=== PATIENT | female | born 1960 | race Caucasian/White ===

== ENCOUNTER 2021-02-01 08:14 | Outpatient (REF) | payer OTHER, SELFPAY ==
--- NOTE | ~2021-02-01 | CT_ITS ---
CT SINUS WITHOUT IV CONTRAST CLINICAL INFORMATION: Sinonasal polyps. Deviated septum. COMPARISON: None available. TECHNIQUE: A multidetector CT acquisition of the sinuses is obtained without contrast. This CT examination was performed using dose optimization techniques as appropriate, variously including the following: *Automated exposure control *Adjustment of mA and/or kV according to patient size (this includes techniques or standardized protocols for targeted exams where dose is matched to indication/reason for exam; i.e. extremities or head) *Use of iterative reconstruction technique FINDINGS: There is moderate polypoid mucosal thickening within the maxillary sinuses bilaterally, there is mild mucosal thickening within the sphenoid sinuses bilaterally, there is moderate mucosal thickening within the ethmoid air cells bilaterally, and the frontal sinuses exhibit mild mucosal thickening. Polypoid soft tissue partially opacifies the maxillary ostia and infundibula bilaterally and also partially opacifies the upper third of the right and left nasal cavity including the olfactory recesses bilaterally. There is a small left mastoid effusion. 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 Left fovea ethmoidalis shares a contiguous slope of the left olfactory groove. There is leftward deviation of the posterior bony nasal septum with a leftward directed nasal septal spur. Pneumatization of the optic struts bilaterally and a small portion of the right anterior clinoid process. No significant soft tissue findings. CT/CT sinus wo con IMPRESSION: - There is moderate polypoid mucosal thickening within the maxillary sinuses bilaterally, there is moderate mucosal thickening throughout the ethmoid air cells bilaterally, and there is additional mild sinus mucosal disease as described. Polypoid soft tissue partially opacifies the maxillary ostia and infundibula bilaterally and also partially opacifies the upper third of the right and left nasal cavity including the olfactory recesses bilaterally. - There is a small left mastoid effusion. 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 - There is leftward deviation of the posterior bony nasal septum with a leftward directed nasal septal spur.
== END 2021-02-01 08:15 | disposition home or self-care (01) ==
LOC: HO.CT 08:14
PROVIDERS: PCP Internal Medicine; Visit Provider Otolaryngology
DX: J33.8 Other polyp of sinus (principal); J34.2 Deviated nasal septum
CPT/HCPCS: 70486

== ENCOUNTER 2021-06-07 11:33 | Emergency (ER) | payer OTHER, SELFPAY ==
--- NOTE | ~2021-06-07 | CT_ITS ---
EXAMINATION: CT HEAD WITHOUT CONTRAST CLINICAL INFORMATION: Fall COMPARISON: None TECHNIQUE: Contiguous axial imaging was performed from the skull base to vertex without intravenous administration of contrast. This CT examination was performed using dose optimization techniques as appropriate, variously including the following: *Automated exposure control *Adjustment of mA and/or kV according to patient size (this includes techniques or standardized protocols for targeted exams where dose is matched to indication/reason for exam; i.e. extremities or head) *Use of iterative reconstruction technique DLP: 662 mGy-cm FINDINGS: There is a acute interhemispheric bleed extending to both inferior frontal lobes with a right inferior frontal lobe hypodensity likely contusion.. The bleed also extends to the right frontal subdural space anteriorly. There is subtle areas of hypodensity seen along the left frontal cortex an similar hypodensities in bilateral parasagittal bilateral anterior frontal lobes questioning contusion. There is no midline shift. There is no suspicion for acute infarction. The posterior fossa is unremarkable. Bone windows reveal no calvarial abnormality. There is no scalp soft tissue abnormality. Bilateral paranasal sinuses and mastoid air cells are well-aerated. There is mild mucoperiosteal thickening bilateral ethmoid sinuses. Rest of the paranasal sinuses and mastoid air cells are well-aerated. CT/CT head/brain wo con IMPRESSION: Acute interhemispheric subdural bleed with extension the right anterior frontal and inferior frontal subdural space. There is moderate hypodensity in the right inferior frontal lobe likely contusion/edema. Similar findings are seen also in bilateral anterior frontal lobes on axial image 2021. There is no midline shifts. Mild bilateral chronic ethmoid sinus inflammatory changes. Results were immediately conveyed by phone to Dr. Lizeth Lemus at 4:10 PM
--- NOTE | ~2021-06-07 | CT_ITS ---
EXAMINATION: CT CERVICAL SPINE WITHOUT CONTRAST CLINICAL INFORMATION: Fall COMPARISON: None TECHNIQUE: Axial images through the cervical spine without contrast. Sagittal and coronal reconstructions on the technologist workstation were performed. This CT examination was performed using dose optimization techniques as appropriate, variously including the following: *Automated exposure control *Adjustment of mA and/or kV according to patient size (this includes techniques or standardized protocols for targeted exams where dose is matched to indication/reason for exam; i.e. extremities or head) *Use of iterative reconstruction technique DLP: 388 mGy-cm FINDINGS: Bone alignment is normal. No acute fracture or dislocation is seen. There is arthritis at the left temporomandibular joint and question old trauma to the mandible. There are postsurgical changes from anterior fusion at C5-C6, C6-C7 and C7-T1. There is mild degenerative spondylosis at C3-C4-C5. There is degenerative spondylosis and degenerative disc disease at T1-T2. There are degenerative changes at the C1 dens articulation. Prevertebral soft tissues are normal. There is mild left carotid calcification. Visualized lung apices are clear. CT/CT cervical spine wo con IMPRESSION: Postsurgical changes and degenerative changes. No acute fracture or dislocation. Degenerative changes of the left temporomandibular joint and question old trauma to the left mandible. Fleischner guidelines were followed.
[2021-06-07 12:13] VITALS: BP 171/83; PULSE 63; RESP 16; TEMP 36.1; O2SAT 99; BMI 24.1
--- NOTE | 2021-06-07 14:11 | ED.FALL ---
HPI - Fall General Chief Complaint: Fall Stated Complaint: Fall on Thursday Time Seen by Provider: 06/07/21 14:09 Source: patient Mode of arrival: ambulatory Limitations: no limitations History of Present Illness HPI Narrative: patient initially states she doesn't remember falling but then states she slipped on the floor due to tiles, notes her biggest issue since then is headache and loss of smell no AC therapy, no aspirin use. MD complaint: fall Onset (ago): day(s) (2) Fall from: standing Fall witnessed: no Place fall occurred: home Loss of consciousness: yes, minutes Length of LOC: minutes(s) (3) Prolonged down time: no Symptoms prior to fall: other (?thinks she slipped on the tile) Context: tripped/slipped Location of injury: head Severity: severe Quality: dull and throbbing Associated symptoms (after fall): headache, lightheaded and other (n/v) Related Data Allergies Allergy/AdvReac Type Severity Reaction Status Date / Time Penicillins [PCN] AdvReac Mild RASH Verified 06/07/21 12:19 CHILD Review of Systems Review of Systems: Constitutional : No Fever, No Chills, No Fatigue ENT/Mouth : No sore throat, No Rhinorrhea, loss of smell Eyes: No Eye Pain, No Swelling, No Redness, pos photophobia Cardiovascular : No Chest Pain, No SOB, No Dyspnea on Exertion Respiratory : No Cough, No Sputum Gastrointestinal : pos Nausea, No Vomiting, No Diarrhea, No abdominal Pain Genitourinary : No Dysuria, No Urinary Frequency, No Hematuria, Musculoskeletal : No joint pain, No Myalgias, No Joint Swelling Skin : No Skin Lesions, No rash Neuro : No Weakness, No Numbness, pos Dizziness, positive Headache Psych : No Anxiety/Panic, No Depression Heme/Lymph: No Bruising, No Bleeding,No Lymphadenopathy Endocrine : No Polyuria, No Polydipsia All other systems reviewed and are negative PMFSH Past Medical History Attestation statement: The following information was validated with the patient. Medical History Anxiety HTN (hypertension) Osteoarthritis Osteoporosis Surgical History History of cholecystectomy Social History Social History (Updated 06/07/21 @ 15:03 by Lizeth Lemus DO) Patient Tobacco Use Status: Never used Tobacco Advance Directives: No Advance Directives Information Provided: No Physical Exam Vital Signs: Vital Signs: Last Vital Signs Temp 97.0 F 06/07/21 12:13 Pulse 63 06/07/21 12:13 Resp 16 06/07/21 12:13 BP 189/88 H 06/07/21 16:16 Pulse Ox 99 06/07/21 12:13 BMI result Body Mass Index 24.1 Appearance: Alert. Oriented X3. No acute distress. Eyes: Pupils equal, round and reactive to light. Photophobia ENT: Pharynx normal. TMs normal bilaterally, small hematoma with ttp on occiput abrasions noted on scalp but no laceration Neck: Normal inspection. Neck supple. CVS: Normal heart rate and rhythm. Pulses normal. Respiratory: No respiratory distress. Breath sounds normal. Abdomen: Soft and non-tender. Skin: Skin warm and dry. Normal skin color. Normal skin turgor. Extremities: No lower extremity edema. Neuro: Oriented X 3. No motor deficit. No sensory deficit. Course Course Course Narrative[place] [facility] [place] and [place] 412pm CT scan R sided subdural hematoma with R frontal lobe contusion and edema no shift patient continues to c/o headache IV morphine low dose 2mg ordered. accepted to ED at [facility] by trauma surgery Dr. Hunt 428pm - patient aware of plan at this time MDM - Fall MDM Narrative Medical decision making narrative: 61 yo female with hx of multiple orthopedic injuries, anxiety, prior neck/back injuries, retinal detachment, HTN, here with c/o fall ?slip on her tile floor on Thursday resulting in a headstrike and LOC. At this time c/o headaches, dizziness, nausea and overall not feeling. Given degree of her symptoms will obtain labs, IVF, CT head/cspine for trauma, EKG. She is NV intact, able to walk in on her own, GCS 15 she notes she lost her taste of smell since the fall. She is not on aspirin or blood thinners Lab Data Result diagrams: 06/07/21 14:59 06/07/21 14:59 Labs: Lab Results 06/07/21 06/07/21 06/07/21 Range/Units 14:59 14:59 14:59 WBC 9.1 (4.8-10.8) X10*3/uL RBC 4.04 L (4.20-5.50) X10*6/uL Hgb 13.9 (12.0-16.0) g/dl Hct 40.9 (37.0-47.0) % MCV 101.2 H (80.0-98.0) fL MCH 34.4 H (27.0-33.0) pg MCHC 34.0 (31.0-35.0) g/dl RDW 12.5 (11.0-16.0) % Plt Count 272 (160-400) X10*3/uL MPV 10.8 (9.4-12.3) fL Immature Gran % (Auto) 0.4 (0.0-0.4) % Neut % (Auto) 74.7 H (45-73) % Lymph % (Auto) 17.0 L (20-40) % Petroleum % (Auto) 6.7 (2-11) % Eos % (Auto) 0.8 (0-4) % Baso % (Auto) 0.4 (0-2) % Lymph # (Auto) 1.6 (1.2-4.9) X10*3/uL Petroleum # (Auto) 0.6 (0.1-1.2) X10*3/uL Eos # (Auto) 0.1 (0.0-0.4) X10*3/uL Baso # (Auto) 0.0 (0.0-0.2) X10*3/uL Abs Immat Gran (auto) 0.04 H (0.00-0.03) X10*3/uL Absolute Neuts (auto) 6.8 (2.0-8.3) x10*3/uL Absolute Nucleated RBC 0.000 (0.0-0.012) X10*3/uL Nucleated RBC % (auto) 0.0 (0.0-0.2) /100WBC Sodium 136 (135-145) mmol/L Potassium 3.6 (3.3-5.1) mmol/L Chloride 102 (96-108) mmol/L Carbon Dioxide 25 (22-29) mmol/L Anion Gap 13 (12-20) BUN 9 (9-16) mg/dL Creatinine 0.66 (0.5-1.4) mg/dL Estim Creat Clear Calc 78.5 Estimated GFR > 60 Random Glucose 90 (60-115) mg/dL Calcium 9.6 (8.4-10.2) mg/dL Magnesium 2.1 (1.6-2.6) mg/dL Total Bilirubin 0.5 (0.0-1.0) mg/dL Direct Bilirubin 0.2 (0.0-0.5) mg/dL AST 16 (5-31) U/L ALT 17 (0-31) U/L Alkaline Phosphatase 94 (39-117) U/L Total Protein 7.1 (6.5-8.0) g/dL Albumin 4.4 (3.5-5.0) g/dL COVID-19 (KEN) Negative (Negative) COVID-19 Clin Com See Note ECG Data Attestation: I personally reviewed and interpreted this ECG as follows: ECG interpretation date: 06/07/21 ECG interpretation time: 15:34 Interpretation: Rate: 63 Rhythm: NSR [place]: normal , LVH Normal P waves. Normal DONATO. Normal QRS complex. ST T wave : nonspecific no MAIKEL qTC: normal prior studies: no acute ischemia The study has been interpreted contemporaneously by me. Critical Care Time Critical Care Time Critical Care Time: Yes Total Critical Care Time: 35 Attestation: medical consult, transfer to tertiary center, IV pain medications I attest to this time spent taking care of the patient Discharge Plan Discharge Clinical Impression: Subdural bleeding Headache Qualifiers: Headache type: post-traumatic Headache chronicity pattern: acute headache Intractability: intractable Qualified Code(s): G44.311 - Acute post-traumatic headache, intractable Fall Qualifiers: Encounter type: initial encounter Qualified Code(s): W19.XXXA - Unspecified fall, initial encounter Cerebral contusion Qualifiers: Encounter type: initial encounter Laterality: right Loss of consciousness presence/duration: with LOC of 30 min or less Qualified Code(s): S06.311A - Contusion and laceration of right cerebrum with loss of consciousness of 30 minutes or less, initial encounter Patient Disposition: [facility] Transfer Details: [facility]
--- NOTE | 2021-06-07 14:32 | ECG_ITS ---
Test Reason : dizziness Blood Pressure : / mmHG Vent. Rate : 063 BPM Atrial Rate : 063 BPM P-R Int : 156 ms QRS Dur : 090 ms QT Int : 446 ms P-R-T Axes : 042 061 074 degrees QTc Int : 456 ms Normal sinus rhythm Minimal voltage criteria for LVH, may be normal variant ( Sokolow-Mcknight ) Borderline ECG No previous ECGs available Referred By: Lizeth Lemus Electronically Signed By:Aleksandar Crane
[2021-06-07 15:03] LABS: MANUAL DIFF FLAG NO
[2021-06-07 15:05] LABS: Basophils Percent Auto 0.4 % (0-2); Eosinophils Absolute Auto 0.1 X10*3/uL (0.0-0.4); Eosinophils Percent Auto 0.8 % (0-4); Hematocrit 40.9 % (37.0-47.0); Hemoglobin 13.9 g/dl (12.0-16.0); Imm Gran Abs Auto 0.04 X10*3/uL (0.00-0.03); Imm Gran Pct Auto 0.4 % (0.0-0.4); Lymphocytes Absolute Auto 1.6 X10*3/uL (1.2-4.9); Mean Corpuscular Hemoglobin 34.4 pg (27.0-33.0); Mean Corpuscular Volume 101.2 fL (80.0-98.0); Mean Platelet Volume 10.8 fL (9.4-12.3); Monocytes Absolute Auto 0.6 X10*3/uL (0.1-1.2); Monocytes Percent Auto 6.7 % (2-11); Neutrophils Absolute Auto 6.8 x10*3/uL (2.0-8.3); Neutrophils Percent Auto 74.7 % (45-73); Platelet Count 272 X10*3/uL (160-400); Red Blood Count 4.04 X10*6/uL (4.20-5.50); Red Cell Distribution Width 12.5 % (11.0-16.0); White Blood Count 9.1 X10*3/uL (4.8-10.8)
[2021-06-07] MEDS: 0.9 % Sodium Chloride 1,000 ML 999 ML IVCONT (15:05)
[2021-06-07] MEDS: Metoclopramide HCl 10 MG/2 ML VIAL IVPUSH (15:05)
[2021-06-07] MEDS: diphenhydrAMINE HCL 50 MG/ML VIAL 25 MG IVPUSH (15:05)
[2021-06-07 15:22] LABS: Alanine Aminotransferase 17 U/L (0-31); Albumin Level 4.4 g/dL (3.5-5.0); Alkaline Phosphatase 94 U/L (39-117); Anion Gap 13 (12-20); Aspartate Amino Transferase 16 U/L (5-31); Bilirubin Direct 0.2 mg/dL (0.0-0.5); Bilirubin Total 0.5 mg/dL (0.0-1.0); Blood Urea Nitrogen 9 mg/dL (9-16); Calcium 9.6 mg/dL (8.4-10.2); Carbon Dioxide 25 mmol/L (22-29); Chloride 102 mmol/L (96-108); Creatinine Clr Calc Pharmacy 78.5; Estimated Glomerular Filt Rate > 60; Glucose Random 90 mg/dL (60-115); Magnesium 2.1 mg/dL (1.6-2.6); Potassium 3.6 mmol/L (3.3-5.1); Sodium 136 mmol/L (135-145); Total Protein 7.1 g/dL (6.5-8.0)
[2021-06-07 15:35] LABS: COVID-19 Test Negative (Negative); IDNOW Serial# 16C4AD1C
[2021-06-07 16:16] VITALS: BP 189/88
[2021-06-07] MEDS: Morphine Sulfate 2 MG/ML CARTRIDGE IVPUSH (16:27)
[2021-06-07 16:33] LABS: INTERNATIONAL NORM RATIO 1.1 (0.9-1.1); Prothrombin Time 12.9 SEC (9.9-13.0)
[2021-06-07 16:36] LABS: Partial Thromboplastin Time 33.8 SEC (24.1-38.0)
== END 2021-06-07 17:04 | disposition short-term general hospital (02) ==
PROVIDERS: Emergency Provider Emergency Medicine; PCP Internal Medicine
DX: S06.5X1A Traumatic subdural hemorrhage with loss of consciousness of 30 minutes or less, initial encounter (principal); W01.10XA Fall on same level from slipping, tripping and stumbling with subsequent striking against unspecified object, initial encounter; G44.311 Acute post-traumatic headache, intractable; R11.0 Nausea; I10 Essential (primary) hypertension; Z20.822 Contact with and (suspected) exposure to COVID-19; Z91.81 History of falling; Y93.9 Activity, unspecified; Y92.019 Unspecified place in single-family (private) house as the place of occurrence of the external cause; Y99.9 Unspecified external cause status
CPT/HCPCS: 36415; 70450; 72125; 80048; 80076; 83735; 85025; 85610; 85730; 87635; 93005; 96361; 96374; 96375; 99285; 99291; J1200; J2270; J2765

== ENCOUNTER 2023-09-14 09:35 | Outpatient (AMB) | payer MEDICARE, OTHER, SELFPAY ==
[2023-09-14 09:42] VITALS: BMI 24.6
--- NOTE | 2023-09-14 09:42 | A.OFFVIS_ITS ---
Vital Signs 3 09/14/23 09:42 Height 5 ft 5 in Weight 148 lb BMI 24.6 Intake Visit Reasons: Rib Pain and Back Pain Allergies Penicillins [PCN] Adverse Reaction (Mild, Verified 06/07/21 12:19) RASH CHILD HPI HPI Rib Pain and Back Pain: Details: 63-year-old female who presents today to the office for rib pain and back pain. She has been referred to us for consideration of interventional therapy for her various pain complaints. She had L5-S1 laminectomy in 1999, C5-C6 discectomy fusion in 2009, and C6-C7 discectomy fusion in 2016. L4-5 laminectomy and fusion [place] [address] Saleem. She had a posterior C2 to T2 fusion in 2022. She had two rotator cuff surgeries in the past and has an unoperated rotator cuff tear in the other shoulder. She had arthroscopic knee surgeries in 1978-. She reports neck and back pain. Her most bothersome pain symptom at this time is low back pain that radiates to the right lower extremity associated with numbness in her right toes. The pain is described at 8/10 in intensity. It is an aching sensation associated with some stabbing in the back and continues with pins and needles and a burning sensation in the lower extremities. Weather changes and movements make it worse. She reports right lower chest pain and worsening pain from the multiple fractures. She also has residual pain from back surgeries. The second most bothersome complaint is neck pain, which is associated with the aching stabbing sensations. She rates her pain at 5-6/10 in intensity. The pain is worse with weather changes and movements. She reports knee pain, which limits her activities. She is interested in having knee replacement surgery. She has a history of osteoarthritis. She had Reclast injections in the past. She had recent DEXA scan. 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 She had a CT scan at [facility]. She was taking Tylenol 625 mg four times a day in the past for jaw pain. 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 She is currently not taking any Tylenol. She is taking Soma. She has tried tramadol in the past with no relief. She has tried physical therapy and massages in the past. She has not tried acupuncture in the past. [facility] Medical History (Updated 09/16/23 @ 16:53 by Hank Austin MD) Hx of traumatic brain injury Failed back syndrome Insomnia Hypothyroidism HTN (hypertension) Hemochromatosis associated with compound heterozygous mutation in HFE gene Goiter LANA (generalized anxiety disorder) Fibrositis Diverticulosis of colon Depression Back pain Asthma Anemia Anxiety Osteoarthritis Surgical History History of cholecystectomy Social History (Updated 06/07/21 @ 15:03 by Radha Lemus DO) Patient Tobacco Use Status: Never used Tobacco Review of Systems Const All systems reviewed & are unremarkable except as noted in HPI and below Physical Exam Vital Signs: BMI result Body Mass Index 24.6 General: Appears afebrile. Alert and oriented. Mood and affect appropriate. Follows and participates in conversation appropriately. Respiratory effort is unlabored. Able to transition from sit to stand unassisted. Ambulates with bilaterally normal heel strike and toe off. Neck range of motion is significantly limited. Lumbar range of motion is painful. Results Reviewed Results Reviewed: 11/2021: MR Lumbar Spine FINDINGS: This study assumes 5 nonrib-bearing lumbar-type vertebral bodies. Dextroconvex lumbar curvature is noted. Mild stairstep retrolisthesis is noted between L1 and L4, as well as L5 on S1. There has been posterior fusion at L4-5 with bilateral pedicle screws and interlocking vertical rods as well as interbody spacer. The hardware and immediately adjacent structures are not directly assessed due to susceptibility artifact. Vertebral body heights are maintained. No lumbar fracture is seen. See separate dictation of MRI pelvis for evaluation of the sacrum and coccyx. Marrow signal is heterogeneous. Modic 2 changes are noted at L4-5, and mixed Modic 1 and 2 changes at L3-4 and L5-S1. Multilevel Schmorl's nodes are noted. Intervertebral disc spaces are desiccated. There is severe loss of intervertebral disc space at L5-S1, moderate loss of height at L3-4, and mild loss of intervertebral disc space at the remaining levels. The conus demonstrates normal signal and caliber, with a normal termination at L2. Fatty atrophy of the posterior paraspinal musculature is noted. A 1.1 cm well-circumscribed rounded T2 bright focus in the partially visualized liver on the localizer sequence is similar to 2017, likely a benign lesion such as a cyst. Findings by level: T12-L1: Mild broad-based disc bulge with shallow left paracentral protrusion. Minimal central stenosis. No significant neural foraminal narrowing. L1-2: Concentric disc osteophyte complex, slightly eccentric to the left. Minimal central stenosis. No significant neural foraminal narrowing. L2-3: Concentric disc osteophyte complex. There is been resolution of a previously seen right-sided subarticular disc protrusion at this level since the study of 2017. Mild narrowing of the subarticular recesses with contact but no compression of the traversing L3 nerve roots. Otherwise no significant central stenosis. Mild right and mild to moderate left neural foraminal narrowing, increased in the left since 2017. L3-4: Concentric disc osteophyte complex along with bilateral facet hypertrophy. Mild central stenosis, 70 increased from 2017, with narrowing of the subarticular recesses and crowding of traversing left greater than right L4 nerve roots. Mild right and moderate left neural foraminal narrowing, slightly increased on the left since 2017. L4-5: Interval posterior fusion. Prior right laminotomy. There is overall moderate central stenosis, but this has improved since 2017, with residual narrowing of right greater than left lateral recesses and crowding of traversing right L5 nerve roots (improved from prior). L5-S1: Broad-based disc osteophyte complex with small central protrusion. No significant central stenosis. Severe right and mild to moderate left neural foraminal narrowing, slightly increased from prior. IMPRESSION: 1. No acute fracture of the lumbar spine. 2. Degenerative and post surgical changes of the lumbar spine as detailed by level above, slightly increased from prior. This includes severe neural foraminal narrowing on the right at L5-S1, slightly increased from 2017. Assessment & Plan Assessment & Plan (1) Rotator cuff disorder: Comment: Bilateral Code(s): M67.919 - Unspecified disorder of synovium and tendon, unspecified shoulder Category: Medical (2) Bilateral knee pain: Code(s): M25.561 - Pain in right knee; M25.562 - Pain in left knee Category: Medical (3) Failed back syndrome: Comment: Cervical and lumbar Code(s): M96.1 - Postlaminectomy syndrome, not elsewhere classified Category: Medical (4) Intractable cervical neuropathic pain: Code(s): M79.2 - Neuralgia and neuritis, unspecified Category: Medical Plan I discussed radiofrequency ablation vs. peripheral nerve stimulator vs. spinal cord stimulator vs. pain pump for her pain symptoms. I provided device and procedure brochures to the patient today with respect to her neck, low back, shoulder and knee pain. I also reviewed her MRI and x rays of the lumbar spine. We discussed evaluation at an [facility] and provided her with contact information for Dr. Lazo at [facility]. We discussed SCS/ITP options for the lower back, but I will defer these until she has been seen at a [facility]. She also has a significant modic changes at L4-L5 and S1 in MRI, although the path to the BVN target is occluded by pedicle screws, but this is another potential option that we can consider in the future. I recommended trying acupuncture for her pain symptoms. For her neck pain, she is interested in proceeding with a trial of temporary nerve stimulation starting with the left side. We discussed temporary trialed 1st followed by potential implant of PNS leads on either side of her cervical facets in the future. She has not a candidate for cervical spinal cord stimulation given the history of posterior fusion. Scribed for Dr. Austin by Mahad Baer, caregivers non medical, on 09/14/2023. I, Dr. Austin, have personally reviewed and agree with the information entered by the scribe. Coding Level of Care Code New Pt Level 4 (36608) Diagnoses Rotator cuff disorder M67.919 Bilateral knee pain M25.561; M25.562 Failed back syndrome M96.1 Intractable cervical neuropathic pain M79.2
== END 2023-09-14 10:18 | disposition home or self-care (01) ==
PROVIDERS: PCP Internal Medicine; Visit Provider Internal Medicine
DX: M67.919 Unspecified disorder of synovium and tendon, unspecified shoulder (principal); M25.561 Pain in right knee; M25.562 Pain in left knee; M96.1 Postlaminectomy syndrome, not elsewhere classified; M79.2 Neuralgia and neuritis, unspecified
CPT/HCPCS: 99204

== ENCOUNTER → 2023-09-14 09:35 | Outpatient (BNVA) | payer MEDICARE, OTHER, SELFPAY | PROVIDERS: PCP Internal Medicine; Visit Provider Internal Medicine | DX: M67.919 Unspecified disorder of synovium and tendon, unspecified shoulder (principal); M25.561 Pain in right knee; M25.562 Pain in left knee; M96.1 Postlaminectomy syndrome, not elsewhere classified; M79.2 Neuralgia and neuritis, unspecified | CPT/HCPCS: 99202 ==